=== PATIENT | male | born 1965 | race Two or more races ===

== ENCOUNTER 2019-11-20 14:31 | Emergency (ER) | payer OTHER | END 2019-11-20 17:31 | disposition home or self-care (01) | LOC: JVIRT 14:31 | DX: Z11.59 Encounter for screening for other viral diseases (principal); Z01.84 Encounter for antibody response examination | CPT/HCPCS: 36415; 86769; Q3014-GT; U0003 ==

== ENCOUNTER 2020-04-16 17:09 | Emergency (ER) | payer OTHER | END 2020-04-16 17:41 | disposition home or self-care (01) | LOC: JVIRT 17:09 | DX: Z11.52 Encounter for screening for COVID-19 (principal) | CPT/HCPCS: C9803; G2251-GT; Q3014-GT; U0003 ==

== ENCOUNTER 2020-05-06 13:53 | Emergency (ER) | payer OTHER | END 2020-05-06 13:56 | disposition home or self-care (01) | LOC: JVIRT 13:53 | DX: U07.1 COVID-19 (principal) | CPT/HCPCS: C9803; G2251-GT; Q3014-GT; U0003 ==

== ENCOUNTER 2023-05-05 02:30 | Emergency (ER) | payer SELFPAY ==
[2023-05-05 02:44] VITALS: BMI 34.2
[2023-05-05 03:52] LABS: BASO % 0.5 % (0-2.0); EOS % 3.3 % (0-4.5); HEMATOCRIT 41.8 % (35.4-49); HEMOGLOBIN 14.4 GM/dL (11.7-16.9); LYMPH % 14.7 % (8-40); MCH 29.8 pg (25.7-33.7); MCHC 34.4 g/dl (32.0-35.9); MEAN CELL VOLUME 86.6 fl (80-96); MEAN PLT VOLUME 7.5 fl (7.5-11.1); MONO % 6.3 % (3.8-10.2); NEUT % 75.2 % (42.8-82.8); PLATELET COUNT 392 10^3/uL (134-434); RBC 4.83 M/mm3 (4.00-5.60); RDW 13.7 % (11.9-15.9); WHITE BLOOD COUNT 10.8 K/mm3 (4.0-10.0)
[2023-05-05] MEDS: morphine CARPU-JECT 2 MG/1 ML DISP.SYRIN IVPUSH ONE (04:03)
[2023-05-05 04:13] LABS: PH,URINE 5.5 (5.0-8.0); URINE APPEARANCE CLEAR; URINE BILIRUBIN NEGATIVE (NEGATIVE); URINE COLOR YELLOW; URINE GLUCOSE (UA) NEGATIVE (NEGATIVE); URINE KETONE TRACE (NEGATIVE); URINE LEUK ESTERASE NEGATIVE (NEGATIVE); URINE NITRITE NEGATIVE (NEGATIVE); URINE PROTEIN NEGATIVE (NEGATIVE); URINE UROBILINOGEN 0.2 mg/dL (0.2-1.0)
[2023-05-05 04:15] LABS: POTASSIUM 4.5 mmol/L (3.5-5.1)
[2023-05-05 04:17] LABS: ALBUMIN 3.9 g/dl (3.4-5.0); BLOOD UREA NITROGEN 14.6 mg/dL (7-18); CALCIUM 9.4 mg/dL (8.5-10.1)
[2023-05-05 04:20] LABS: CREATININE 0.9 mg/dL (0.55-1.3)
[2023-05-05 04:22] LABS: BILIRUBIN,TOTAL 0.4 mg/dL (0.2-1); TOT PROT 8.2 g/dl (6.4-8.2)
[2023-05-05] MEDS ORDERED: LIDOCAINE 4% PATCH TP ONE (05:02)
[2023-05-05] MEDS: LIDOCAINE 4% PATCH TP ONE (05:05)
[2023-05-05 05:56] LABS: N-TERMINAL BNP 1155.9 pg/ml (5-125)
[2023-05-05] MEDS: SODIUM CHLORIDE 0.9% 500 ML INFUS.BAG IV ONE (06:05)
[2023-05-05] MEDS ORDERED: KETOROLAC TROMETHAMINE 30 MG/1 ML VIAL ONE (06:07)
[2023-05-05] MEDS: KETOROLAC TROMETHAMINE 15 MG/ML VIAL IVPUSH ONE (06:12)
[2023-05-05 06:32] VITALS: BP 149/76; PULSE 85; RESP 17; TEMP 97.9
[2023-05-05] MEDS ORDERED: LIDOCAINE PATCH REMOVAL MC SCH (22:00)
== END 2023-05-05 06:33 | disposition home or self-care (01) ==
LOC: JER 02:30
PROC: 3E0333Z Introduction of Anti-inflammatory into Peripheral Vein, Percutaneous Approach (ICD-10-PCS; principal; 2023-05-05)
PROC: 3E033GC Introduction of Other Therapeutic Substance into Peripheral Vein, Percutaneous Approach (ICD-10-PCS; 2023-05-05)
DX: S22.31XA Fracture of one rib, right side, initial encounter for closed fracture (principal); S20.211A Contusion of right front wall of thorax, initial encounter; I11.0 Hypertensive heart disease with heart failure; I50.9 Heart failure, unspecified; R10.9 Unspecified abdominal pain; F10.10 Alcohol abuse, uncomplicated; W01.0XXA Fall on same level from slipping, tripping and stumbling without subsequent striking against object, initial encounter; Y92.090 Kitchen in other non-institutional residence as the place of occurrence of the external cause; Z20.822 Contact with and (suspected) exposure to COVID-19
CPT/HCPCS: 0241U-QW; 71045-TC-FY; 74176-TC; 80053; 81003; 83735; 83880; 84484; 85025; 86850; 86900; 86901; 87086; 93005; 93010; 99285-25